=== PATIENT | male | born 1975 | race Caucasian/White ===

== ENCOUNTER 2017-09-25 14:39 | Emergency (ER) | payer BC ==
[2017-09-25] MEDS ORDERED: METOCLOPRAMIDE HCL INJ/PF 10 MG/2 ML SDV IM ONE (15:37)
[2017-09-25] MEDS ORDERED: FENTANYL CITRATE INJ/PF 100 MCG/2 ML AMPUL IM ONE (15:40)
--- NOTE | 2017-09-25 15:43 | ER Document Report ---
ED Medical Screen (RME) - General Chief Complaint: Nausea/Vomiting Stated Complaint: NAUSEA/VOMITING Time Seen by Provider: 09/25/17 15:34 Notes: RAPID MEDICAL EVALUATION DISCLOSURE I have seen this patient as part of a Rapid Medical Evaluation and, if applicable, placed any initially appropriate orders. The patient will be seen and fully evaluated, including a full history and physical exam, by a provider ( in Main ED or Fast Track) when a room becomes available. 42-year-old male here with complaints of epigastric abdominal pain nausea vomiting ongoing for the past 2 days. This is been ongoing for many years but states this is the worst it has ever been. Has not tried anything for the symptoms. Is now vomiting dark colored emesis. No prior history of esophageal or peptic ulcers or liver disease. He does drink alcohol very occasionally, "maybe once or twice a week". He is here on vacation from [place] and could not see his PCP so he came here. EXAM CTAB RRR Mild to moderate epigastric TTP but not elsewhere No peritoneal signs - Related Data Allergies/Adverse Reactions: No Known Allergies Allergy (Verified 09/25/17 15:35) Physical Exam - Vital signs Vitals: Temp Pulse Resp BP Pulse Ox 99.1 F 82 24 H 157/101 H 98 09/25/17 14:47 09/25/17 14:47 09/25/17 14:47 09/25/17 14:47 09/25/17 14:47 Course - Vital Signs Vital signs: Temp Pulse Resp BP Pulse Ox 99.1 F 82 24 H 157/101 H 98 09/25/17 14:47 09/25/17 14:47 09/25/17 14:47 09/25/17 14:47 09/25/17 14:47
[2017-09-25] MEDS ORDERED: NORMAL SALINE 1000 ML 1,000 ML IV ONE (15:52)
[2017-09-25] MEDS ORDERED: FENTANYL CITRATE INJ/PF 100 MCG/2 ML AMPUL IV ONE ×2 (15:52→17:21)
[2017-09-25] MEDS ORDERED: METOCLOPRAMIDE HCL INJ/PF 10 MG/2 ML SDV IV ONE ×2 (15:53→17:20)
[2017-09-25 16:35] LABS: APPEARANCE,URINE CLEAR; BILIRUBIN,URINE NEGATIVE (NEGATIVE); COLOR,URINE YELLOW; GLUCOSE, URINE NEGATIVE (NEGATIVE); KETONES,URINE 20 mg/dL (NEGATIVE); LEUKOCYTE ESTERASE,URINE NEGATIVE (NEGATIVE); NITRITE,URINE NEGATIVE (NEGATIVE); PROTEIN,URINE >=500 mg/dL (NEGATIVE); URINE SPECIFIC GRAVITY 1.027; UROBILINOGEN,URINE NEGATIVE mg/dL (<2.0)
[2017-09-25 16:37] LABS: ABSOLUTE LYMPHOCYTES (AUTO) 2.2 10^3/uL (0.5-4.7); ABSOLUTE MONOCYTES (AUTO) 1.3 10^3/uL (0.1-1.4); ABSOLUTE NEUT (AUTO) 9.6 10^3/uL (1.7-8.2); BASOPHILS % (AUTO) 0.2 % (0-2); HEMATOCRIT 50.8 % (37.9-51.0); HEMOGLOBIN 17.3 g/dL (13.5-17.0); LYMPHOCYTES % (AUTO) 17.1 % (13-45); MEAN CORPUSCULAR HEMOGLOBIN 29.5 pg (27.0-33.4); MEAN CORPUSCULAR HGB CONC 34.1 g/dL (32.0-36.0); MEAN CORPUSCULAR VOLUME 87 fl (80-97); MONOCYTES % (AUTO) 9.6 % (3-13); PLATELET COUNT 376 10^3/uL (150-450); RED BLOOD COUNT 5.87 10^6/uL (4.35-5.55); RED CELL DISTRIBUTION WIDTH 12.7 % (11.5-14.0); SEGMENTED NEUTROPHILS % (AUTO) 73.1 % (42-78); TOTAL CELLS COUNTED % (AUTO) 100 %; WHITE BLOOD COUNT 13.1 10^3/uL (4.0-10.5)
[2017-09-25 16:53] LABS: ALANINE AMINOTRANSFERASE 34 U/L (21-72); ALBUMIN 5.1 g/dL (3.5-5.0); ALKALINE PHOSPHATASE 59 U/L (38-126); ANION GAP 14 (5-19); ASPARTATE AMINO TRANSFERASE 24 U/L (17-59); BILIRUBIN,DIRECT 0.3 mg/dL (0.0-0.4); BILIRUBIN,TOTAL 1.2 mg/dL (0.2-1.3); BLOOD UREA NITROGEN 18 mg/dL (7-20); CALCIUM 10.3 mg/dL (8.4-10.2); CARBON DIOXIDE 28 mmol/L (22-30); CHLORIDE 101 mmol/L (98-107); GLUCOSE 136 mg/dL (75-110); LIPASE 88.9 U/L (23-300); POTASSIUM 4.1 mmol/L (3.6-5.0); SODIUM 143.3 mmol/L (137-145); TOTAL PROTEIN 8.6 g/dL (6.3-8.2)
[2017-09-25] MEDS ORDERED: DIPHENHYDRAMINE HCL 50 MG/ML VIAL IV ONE (17:20)
--- NOTE | 2017-09-25 17:30 | ER Document Report ---
ED GI/ - General Chief Complaint: Nausea/Vomiting Stated Complaint: NAUSEA/VOMITING Time Seen by Provider: 09/25/17 15:34 Mode of Arrival: Ambulatory Information source: Patient TRAVEL OUTSIDE OF THE [place] IN LAST 30 DAYS: No - HPI Patient complains to provider of: Abdominal pain, Vomiting Onset: Other - 3 DAYS Timing/Duration: Gradual, Waxing and waning Quality of pain: Cramping, Dull Severity at maximum: Moderate Severity in ED: Mild Context: denies: Bad food, Lifting, Out of the country travel, , Recent trauma Location: Epigastric - AND [facility] Associated symptoms: Lightheaded, Nausea, Vomiting. denies: Blood in emesis, Blood in stool, Chills, Constipation, Dysuria, Fever, Syncope Exacerbated by: Denies Relieved by: Denies Similar symptoms previously: Yes - SEVERAL, NO Dx Recently seen / treated by doctor: Yes - [facility] 2 d [facility] - Related Data Allergies/Adverse Reactions: No Known Allergies Allergy (Verified 09/25/17 15:35) Past Medical History - General Information source: Patient - Social History Smoking Status: Former Smoker Chew tobacco use (# tins/day): No Frequency of alcohol use: Social Drug Abuse: Marijuana Lives with: Spouse/Significant other Family History: Reviewed & Not Pertinent Patient has suicidal ideation: No Patient has homicidal ideation: No - Past Medical History Cardiac Medical History: Reports: Hx Hypertension Pulmonary Medical History: Reports: None EENT Medical History: Reports: None Neurological Medical History: Reports: None Endocrine Medical History: Reports: None Renal/ Medical History: Reports: None. Denies: Hx Peritoneal Dialysis Malignancy Medical History: Reports None GI Medical History: Reports: Hx Gastroesophageal Reflux Disease Musculoskeltal Medical History: Reports None Psychiatric Medical History: Reports: None Past Surgical History: Reports: Hx Appendectomy, Hx Herniorrhaphy Review of Systems - Review of Systems Constitutional: No symptoms reported EENT: No symptoms reported Cardiovascular: No symptoms reported Respiratory: No symptoms reported Gastrointestinal: See HPI Genitourinary: No symptoms reported Musculoskeletal: No symptoms reported Skin: No symptoms reported Neurological/Psychological: No symptoms reported Physical Exam - Vital signs Vitals: Temp Pulse Resp BP Pulse Ox 99.1 F 82 24 H 157/101 H 98 09/25/17 14:47 09/25/17 14:47 09/25/17 14:47 09/25/17 14:47 09/25/17 14:47 Interpretation: Hypertensive, Tachypneic - General General appearance: Appears well, Alert In distress: None - HEENT Head: Normocephalic Eyes: Normal Conjunctiva: Normal Ears: Normal Nasal: Normal Mouth/Lips: Normal Mucous membranes: Dry - MILDLY Pharynx: Normal Neck: Normal - Respiratory Respiratory status: No respiratory distress Breath sounds: Normal - Cardiovascular Rhythm: Regular Heart sounds: Normal auscultation Murmur: No - Abdominal Inspection: Obese Distension: No distension Bowel sounds: Hypoactive - Back Back: Normal - Extremities General upper extremity: Normal inspection General lower extremity: Normal inspection - Neurological Neuro grossly intact: Yes Cognition: Normal Orientation: AAOx4 - Psychological Associated symptoms: Normal affect, Normal mood - Skin Skin Temperature: Warm Skin Moisture: Dry Skin Color: Normal Skin Turgor: Elastic Course - Vital Signs Vital signs: Temp Pulse Resp BP Pulse Ox 98.9 F 87 18 149/83 H 97 09/25/17 18:26 09/25/17 18:26 09/25/17 18:26 09/25/17 18:26 09/25/17 18:26 - Laboratory Result Diagrams: 09/25/17 16:10 09/25/17 16:10 Laboratory results interpreted by me: 09/25/17 09/25/17 09/25/17 16:01 16:10 16:10 WBC 13.1 H RBC 5.87 H Hgb 17.3 H Absolute Neutrophils 9.6 H Glucose 136 H Calcium 10.3 H Total Protein 8.6 H Albumin 5.1 H Urine Protein >=500 H Urine Ketones 20 H Discharge - Discharge Clinical Impression: Dehydration Vomiting Qualifiers: Vomiting type: unspecified Vomiting Intractability: non-intractable Nausea presence: with nausea Qualified Code(s): R11.2 - Nausea with vomiting, unspecified Condition: Stable Disposition: HOME, SELF-CARE Instructions: Gastritis ([facility]), Dehydration ([facility]), Antinausea Medication ([facility]), Intravenous (IV) Fluids ([facility]) Additional Instructions: CLEAR LIQUID DIET UNTIL APPETITE RETURNS, THEN GRADUALLY ADVANCE DIET. YOU MAY TAKE REGLAN OR ZOFRAN FOR NAUSEA CONTROL IF NEEDED. CONTINUE YOUR USUAL MEDICATIONS. FOLLOW UP WITH YOUR PRIMARY CARE PROVIDER OR RETURN TO E.R. IF PROBLEMS. Prescriptions: Metoclopramide HCl [Reglan 10 mg Tablet] 10 mg PO Q4HP PRN #20 tablet PRN Reason: For Nausea/Vomiting
[2017-09-25] MEDS ORDERED: LOSARTAN POTASSIUM 50 MG TABLET PO ONE (17:35)
[2017-09-25 18:28] VITALS: BP 149/83
== END 2017-09-25 18:52 | disposition home or self-care (01) ==
LOC: ER 14:39
DX: R11.2 Nausea with vomiting, unspecified (principal); E86.0 Dehydration; R10.13 Epigastric pain; R10.33 Periumbilical pain; R42 Dizziness and giddiness; I10 Essential (primary) hypertension; Z87.19 Personal history of other diseases of the digestive system; Z90.49 Acquired absence of other specified parts of digestive tract; Z87.891 Personal history of nicotine dependence
CPT/HCPCS: 96376; 99284; 96361; 96374; 96375; 36415; 83690; 85025; 82271; 80053; 81001; J1200; J3010; J2765; J7030